=== PATIENT | male | born 1990 | race Caucasian/White ===

== ENCOUNTER 2023-12-24 21:40 | Emergency (ER) | payer SELFPAY ==
[~2023-12-24] VITALS: Ht 165.1 cm; Wt 74.4 kg
[2023-12-24 21:53] VITALS: BP 104/55; PULSE 88; RESP 16; TEMP 98.3; O2SAT 100
[2023-12-25] MEDS: KETOROLAC 30 MG/ML VIAL IM ONE (01:32)
[2023-12-25] MEDS ORDERED: NAPR-337 PO (02:05)
[2023-12-25] MEDS ORDERED: CYCL-711 PO (02:05)
== END 2023-12-25 02:22 | disposition home or self-care (01) ==
LOC: MED 21:40
DX: R07.89 Other chest pain (principal); M62.838 Other muscle spasm; M25.512 Pain in left shoulder; Z98.890 Other specified postprocedural states; Z79.899 Other long term (current) drug therapy
CPT/HCPCS: 71045; 96372; 99283; J1885